=== PATIENT | male | born 1980 | race Caucasian/White ===

== ENCOUNTER 2024-10-02 06:14 | Day surgery (SDC) | payer OTHER, SELFPAY ==
[2024-10-02] VITALS (11 sets, daily range): BP systolic 99–113; BP diastolic 65–81; BMI 23.0
[2024-10-02] MEDS: TYLENOL 1000 MG PO (11:24)
--- NOTE | 2024-10-02 11:51 | W.SUR.PREOP ---
Pre-Operative Surgical Note
-
I have examined this patient prior to the performance of the scheduled procedure.
The patient's condition is unchanged from the time of the current History and
Physical and the patient is able to undergo the scheduled procedure.
--- NOTE | 2024-10-02 11:51 | HP.FOC2 ---
Focused History & Physical
Chief Complaint
HPI:
Chief Complaint:
Umbilical hernia
HPI / Indication for Planned Procedure:
This is a 43-year-old male with a symptomatic umbilical hernia. Will plan for an open umbilical hernia repair with mesh.
Relevant Past Medical History: Negative
Relevant Social History: Negative
Relevant Family History: Negative
Relevant Past Surgical History: Negative
Review of Systems
Review of Pertinent Systems: All Systems Negative
Medication
See Medication form for detailed medications: Yes
Medication List (including Herbals & OTC):
vitamin C 30 mg-zinc citrate 1.1 mg-elderberry 25 mg chewable tablet (Sambucus Elderberry) 2 tab PO Daily 09/30/24
Medications Reviewed: Yes
Allergies and Reactions
Patient has Allergies: Yes
Noted Allergies and Reactions:
Allergy/AdvReac Type Severity Reaction Status Date / Time
bee venom protein (honey bee) Allergy Anaphylaxis Verified 09/30/24 12:11
Pertinent Physical Exam
All Other Systems: Negative
Head/Neck: Normal
Diagnosis / Assessment
43-year-old male with a symptomatic umbilical hernia
Plan / Procedure
Will plan for an open umbilical hernia repair with mesh.
Anesthesia/Sedation to be done by Anesthesia Provider: Yes
--- NOTE | 2024-10-02 13:16 | W.IMMPOSTOP ---
Surgical Immed Post Op Note
-
Primary Surgeon: Agustín Berg MD
Assisting Surgeon: None
Pre-op Diagnosis: Umbilical hernia
Post-op Diagnosis: Same
Procedure Performed: Open umbilical hernia repair with mesh
Anesthesia Type: General
Specimen / Cultures: None
Estimated Blood Loss: 1 cc
Complications: None
Operative Findings: 1.5 cm umbilical defect containing preperitoneal fat that was debulked to the level of the fascia. A preperitoneal space was developed to accommodate a 5 x 5 Bard soft uncoated polypropylene mesh. The defect was closed in the
transverse direction with three 0 Surgilon sutures.
--- NOTE | 2024-10-02 13:17 | OR.RPT ---
Operative Report
Operative Report
Patient Name: Jose Martins
: 1980
Date of Operation: 10/02/2024
Preoperative Diagnosis: Umbilical hernia
Postoperative Diagnosis: Same
Procedure(s):
Open umbilical hernia
Surgeon(s):
Dr. Berg
Title I Instructional Assistant(s):
BRANDIN Alfaro
Anesthesia: General
Estimated Blood Loss: 1 cc
Urine Output: None
Drains/Lines/Implants: 5 x 5 cm Bard soft uncoated polypropylene mesh
Specimens: None
Indication for surgery:
The patient has a symptomatic umbilical hernia. After review of their therapeutic options, they elected to pursue open repair.
Operative Findings: 1.5 cm umbilical defect containing preperitoneal fat that was debulked to the level of the fascia. A preperitoneal space was developed to accommodate a 5 x 5 Bard soft uncoated polypropylene mesh. The defect was closed in the
transverse direction with three 0 Surgilon sutures.
Details of the operation:
After successful induction of anesthesia, the patient was prepped and draped in the supine position. A team timeout was performed confirming administration of DVT prophylaxis, IV antibiotics and SCDs. The skin was anesthestized with 0.25% Marcaine
and an infraumbilical incision was made and dissection carried down to the fascia. The hernia sac was then encircled and carefully dissected off of the umbilical stalk and debulked using 3-0 Vicryl ties before it was returned to the abdomen. The
defect measured 1.5 cm. The preperitoneal fat was dissected to create a pocket large enough to accommodate the 5 x 5 cm mesh to ensure the mesh laid completely flat. The defect was then closed in the transverse direction using three 0 Surgilon
sutures. The umbilical stalk was then tacked down to the fascia with a 3-0 Vicryl suture. The dermis was then approximated with interrupted 3-0 Vicryl sutures followed by Dermabond. Once the glue had dried, we placed a folded up piece of gauze
into the umbilicus and covered it with a large Tegaderm dressing and then suctioned out the gauze to create a vacuum dressing to help obliterate the space. The patient returned to the Recovery Room in stable condition. Sponge and instrument
counts were correct. No specimens sent to Pathology.
I was the attending physician and performed the procedure with assistance of the PA above. The assistance of BRANDIN Alfaro was required due to the complexity of the procedure. During the procedure Sierra assisted with retraction, resection, and
closure of the wound. I was present for all portions of the case.
Agustín Berg MD
== END 2024-10-02 15:16 | disposition home or self-care (01) ==
LOC: SDS 06:14
PROVIDERS: ATTENDING PHYSICIAN Surgery
DX: K42.9 Umbilical hernia without obstruction or gangrene (principal)
CPT/HCPCS: 49591